=== PATIENT | male | born 1980 | race Caucasian/White ===

== ENCOUNTER 2018-06-24 11:46 | Outpatient (CLI) ==
[2014-04-12 08:56] VITALS: BMI 27.1
--- NOTE | 2018-06-24 12:33 | DI ---
EXAM: Five views of the lumbar spine. History: Chronic lower back pain. Comparison: Lumbar spine radiograph 04/14/2016 Findings: No acute fracture or subluxation of the lumbar spine. Mild disc space narrowing again see n at L4-L5 and L5-S1 and mild facet hypertrophy again seen at L5-S1. No abnormal calcifications or r adiopaque foreign bodies. Impression: 1. No acute osseous abnormality of the lumbar spine. 2. 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
== END 2018-06-24 11:47 | disposition home or self-care (01) ==
LOC: RAD 11:46
PROVIDERS: ATTEND Family Medicine
DX: M54.5 Low back pain (principal); G89.29 Other chronic pain